=== PATIENT | male | born 1960 | race American Indian/Alaskan Native ===

== ENCOUNTER 2017-03-25 07:15 | Inpatient (IN) | payer MEDICAID ==
[2017-03-21 11:10] LABS: Basophils % (Auto) 0.3 % (0.0-1.8); Eosinophils % (Auto) 2.9 % (0.0-4.3); Hematocrit 39.1 % (35.5-45.6); Mean Corpuscular HGB Conc 33 % (32-34); Mean Corpuscular Hemoglobin 29 pg (28-32); Mean Corpuscular Volume 86 fl (84-94); Platelet Count 200 K/mm3 (140-440); Red Blood Count 4.52 M/mm3 (3.65-5.03); Red Cell Distribution Width 13.6 % (13.2-15.2); White Blood Count 11.6 K/mm3 (4.5-11.0)
--- NOTE | 2017-03-21 11:10 | Anesthesia Consultation ---
Anesthesia Consult and Med Hx Date of service: 03/25/17 - Airway Anesthetic Teeth Evaluation: Good, Caps (gold cap, bottom, front tooth) ROM Head & Neck: Adequate Mental/Hyoid Distance: Adequate Mallampati Class: Class II Intubation Access Assessment: Probably Good - Pulmonary Exam CTA: Yes - Cardiac Exam Cardiac Exam: RRR - Pre-Operative Health Status ASA Pre-Surgery Classification: ASA3 Proposed Anesthetic Plan: General - Pulmonary Hx Smoking: No Hx Asthma: No Hx Sleep Apnea: No (ELMER PRE SCREEN HIGH RISK) - Cardiovascular System Hx Hypertension: Yes (2008) - Central Nervous System Hx Seizures: No 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
[2017-03-21 11:21] LABS: INR 1.1 (0.87-1.13)
[2017-03-21 11:22] LABS: Partial Thromboplastin Time 33.1 Sec. (24.2-36.6)
[2017-03-21 11:35] LABS: Alanine Aminotransferase 16 units/L (7-56); Albumin 3.7 g/dL (3.9-5); Albumin/Globulin Ratio 1.1 %; Alkaline Phosphatase 72 units/L (35-129); Anion Gap 18 mmol/L; BUN/Creatinine Ratio 12.22; Blood Urea Nitrogen 11 mg/dL (9-20); Calcium 8.7 mg/dL (8.4-10.2); Carbon Dioxide 23 mmol/L (22-30); Glucose 116 mg/dL (75-100); Potassium 3.7 mmol/L (3.6-5.0); Sodium 139 mmol/L (137-145)
[~2017-03-25 07:15] MED LIST: NACL 0.9% 1000 ML 1,000 ML IV SCH; PEPCID PO NR
[2017-03-25] MEDS ORDERED: ceFAZolin 2 GM in NACL 0.9% 100 ML IV ONE (09:22)
[2017-03-25] MEDS ORDERED: DILAUDID ONE ×3 (09:35→14:17)
[2017-03-25] MEDS ORDERED: DIPRIVAN 10 MG/ML IV ONE (09:35)
[2017-03-25] MEDS ORDERED: XYLOCAINE MPF 2% ONE (09:36)
[2017-03-25] MEDS ORDERED: ANCEF/STERILE WATER 2 GM/20 ML 2 GM/20 ML SYRINGE IV NR ×2 (10:00)
--- NOTE | 2017-03-25 10:12 | Post Operative Note ---
Date of procedure: 03/25/17 Pre-op diagnosis: GRAHAM Post-op diagnosis: same Findings: large gland Procedure: cysto turp Anesthesia: GETA Surgeon: LYLE ATWOOD Estimated blood loss: 50-100ml Pathology: list (prostate) Specimen disposition: to lab Condition: stable Disposition: PACU
[2017-03-25] MEDS ORDERED: WATER FOR IRRIG STERILE IR ONE (10:13)
[2017-03-25] MEDS ORDERED: SORBITOL-MANNITOL IRRIG IR ONE ×2 (10:13)
[2017-03-25] MEDS ORDERED: NACL 0.9% IR ONE (10:14)
[2017-03-25] MEDS ORDERED: ZOFRAN ONE (10:39)
[2017-03-25] MEDS ORDERED: DECADRON ONE (10:39)
[2017-03-25] MEDS ORDERED: ePHEDrine SULFATE ONE (10:51)
[2017-03-25] MEDS ORDERED: TYLENOL PO PRN (11:11)
[2017-03-25] MEDS ORDERED: ZOFRAN IV PRN (11:11)
--- NOTE | 2017-03-25 11:15 | Post Anesthesia Evaluation ---
- Post Anesthesia Evaluation Patient Participated: Yes Airway Patent: Yes Stable Respiratory Function: Yes Nausea/Vomiting: No Temp > 96.8F: Yes Pain Manageable: Yes Adequeate Hydration: Yes Anesthesia Complications: No
[2017-03-25] MEDS ORDERED: AMBIEN PO PRN (11:16)
[2017-03-25] MEDS: DILAUDID IV PRN ×3 (11:47→14:25)
[2017-03-25] MEDS ORDERED: ANCEF/NS 1 GM/50 ML 1 GM/50 ML BAG IV SCH (12:00)
[2017-03-25] MEDS ORDERED: D5W/0.45% NACL/KCL 20 MEQ 20 MEQ/1,000 ML BAG IV SCH (12:00)
--- NOTE | 2017-03-25 12:04 | XRay Report ---
SUPINE KUB: The abdominal gas pattern is unremarkable. No masses or organomegaly is identified and there is no gross evidence of free air or fluid. No significant soft tissue calcifications are noted. IMPRESSION: Normal study.
[2017-03-25] MEDS: NACL 0.9% IR SCH ×6 (12:45→17:30)
[2017-03-25] MEDS ORDERED: NACL 0.9% IR SCH (13:00)
[2017-03-25] MEDS ORDERED: NACL 0.9% 1000 ML 1,000 ML ONE (13:11)
[2017-03-25] MEDS: ANCEF/NS 1 GM/50 ML 1 GM/50 ML BAG IV SCH ×2 (14:31→22:21)
--- NOTE | 2017-03-25 16:48 | Operative Report ---
PREOPERATIVE DIAGNOSES: Bladder outlet obstruction, large prostate with very large middle lobe. POSTOPERATIVE DIAGNOSES: Bladder outlet obstruction, large prostate with very large middle lobe. PROCEDURE: Cystoscopy, transurethral resection of prostate. SURGEON: Siddhartha Beckman MD ANESTHESIA: General. FINDINGS: This is a gentleman with a very large prostate with progressive bladder outlet obstruction holey compliant with his medication. He now presents for treatment of his condition. All risks and benefits discussed with him and his . DESCRIPTION OF PROCEDURE: The patient brought to the operating room and placed on the operating table. Following induction of anesthesia, placed in lithotomy position, prepped and draped in sterile fashion. His urethra was quite long, we barely got the resectoscope and under direct vision. We passed a 27-resectoscope in behind this large middle lobe. We resected the middle lobe that was the main aspect of this procedure. Once we resected it, there was some tissue that got in, so we resected the lateral lobes. Careful attention was made not to disturb the trigone. The orifices were intact. The patient tolerated the procedure well. There were no significant complication was resected first on the left lobe, which was communicated with the middle lobe. There were small bleeders from the 5 and 7 o'clock position, which were cauterized. There was also bleeders from anterior that would prop down. We were careful not to resect it due to sphincter mechanism. The patient tolerated the procedure well. All the chips were evacuated out with the Shicon evacuator. Hemostasis was good. We used the ball electrode. We connected 3-way catheter, which was draining clear urine. It was irrigated freely, we got about 40 mL in the balloon. The patient was brought to recovery in stable condition. JOB# [id number] JORDYN/MALCOM
[2017-03-25] MEDS: NORCO 5/325 PO PRN ×2 (17:05→22:57)
--- NOTE | 2017-03-25 18:58 | Admit Criteria Form ---
Admission Criteria Documentation: AMBULATORY SURGERY EXCEPTION CRITERIA Ambulatory Surgery Exception Criteria ( Place 'X' for any and all applicable criteria): Surgery or procedure performed on ambulatory basis may require inpatient stay for[A] ANY ONE of the following(1)(2)(3)(4)(5)(6)(7)(8)(9): [X] I. A preoperative situation, condition, or finding that warrants inpatient stay as indicated by ANY ONE of the following: [] a) Inpatient care needed because of severity of a disease or condition rather than the surgery (eg, severe cardiac or respiratory disease, severe infection) (15) (16 ) (17) (18) [] b) Emergent procedure (eg, angioplasty for acute ischemia)(19) [] c) Complex surgical approach or situation as indicated by ANY ONE of the following(3): [] i) Open approach needed instead of usual endoscopic, transcatheter, or other less invasive procedure [] ii) Difficult approach because of previous operation [] iii) Airway monitoring required after open neck procedures(20)(21) [] iv) Large mass requiring unusually extensive dissection [] v) Additional complicating feature requiring inpatient care (eg, drain management)(22(23): [X] d) Major surgery in a pt with high anesthetic risk as indicated by ANY ONE of the following (2)(3)(5)(7)(8): [X] i) ASA risk class III or higher (severe systemic disease impairing function) [D] [] ii) Advanced age (eg, older than 85 years)(14)(24) [] iii) Symptomatic heart failure(25) [] iv) Symptomatic asthma or COPD(8)(21) [] v) Morbid obesity with hemodynamic or respiratory problems(20)( 21)(26)(27) [] vi) Obstructive sleep apnea(20)(21) [] vii) Former premature infants who are younger than 60 weeks [] viii) High risk for severe postoperative abnormalities (eg, severe postoperative hypocalcemia after parathyroidectomy for severe hyperparathyroidism)(27)( 28) [] ix) Unstable angina(25) [] e) Drug-related risk requiring inpatient stay as indicated by ANY ONE of the following(5)(10)(14)(32)(33) [] i) Procedure requires discontinuing drugs or other therapy (eg , antiarrhythmic medication, antiseizure medication), which necessitates inpatient observation or treatment.(18)(31) [] ii) Major surgery and high risk drug use as indicated by ANY ONE of the following: [] 1) Active abuse of cocaine or similar drug [] 2) Monoamine oxidase inhibitor use [] 3) Other drug identified as posing risk [] f) Inadequate outpatient care situation as indicated by ANY ONE of the following(5)(10)(14)(32)(33) [] i) Patient lives remote from medical facility and procedure has urgent complication potential, and temporary nearby residence cannot be arranged [] ii) Patient will have postprocedure incapacitation and inadequate assistance at home, or alternative level of care cannot be arranged. [] iii) Patient will have long general anesthesia or procedure side effect resolution time, and competent person to stay with patient on first postoperative night at home or alternative level of care cannot be arranged. []iv) Other inadequate outpatient situation that cannot be handled by other means [X] II. A perioperative event, condition, or finding that warrants inpatient stay as indicated by ANY ONE of the following (1)(2)(3): [X] a) Inadequate physiologic recovery: cardiovascular, respiratory, or hemodynamic status not normal or near preoperative baseline(18) [] b) Hemodynamic instability [] c) Patient not alert with near normal or baseline mental status [] d) Temperature not normal or as expected and not appropriate for outpatient treatment of condition [] e) Ambulatory or appropriate activity level status not yet achieved post procedure [E](34)(35)(36) [] f) Operative site not appropriate (eg, unexpected or excessive drainage or bleeding) [] g) Postoperative effects not resolved or adequately managed (eg, significant pain or vomiting not appropriate for outpatient or next level of care)(10)(12) [] h) Complicating features requiring inpatient care as indicated by ANY ONE of the following(37): [] i) Severe complications of procedure (eg, bowel injury, airway compromise, vascular injury,severe hemorrhage) [] ii) Extensive (eg, dissection far beyond usual scope of procedure ) or prolonged (eg, 120 minutes beyond usual) surgery needed requiring inpatient postoperative care [] iii) Conversion to an open or complex procedure that requires inpatient care (eg, open vs laparoscopic cholecystectomy, abdominal vs vaginal hysterectomy)(38) [] iv) Comorbid condition or test result identified during or post procedure that requires inpatient care (7) [] v) Malignant hyperthermia(30) [] vi) Other complicating feature requiring inpatient care(22)(23) Inpatient stay may be needed until ALL of the following are present (1)(2)(3)(4) (5)(6)(10)(14)(33)(40): []a) Physiologic recovery: cardiovascular, respiratory, and hemodynamic status normal or near preoperative baseline []b) Hemodynamic stability []c) Patient alert, with near normal or baseline mental status []d) Temperature appropriate: patient afebrile or temperature appropriate for outpt treatment of condition []e) Activity level appropriate: ambulatory or appropriate activity level post procedure []f) Operative site appropriate as indicated by ALL of the following: []i) Site dry or with expected drainage []ii) Any blood noted is as expected for procedure. []g) Postoperative effects resolved or managed as indicated by ALL of the following: []i) Pain management appropriate for outpatient (or next level of) care(10) []ii) Minimal nausea and vomiting: if present, successfully treated with oral medication(12) []iii) Headache, dizziness, or drowsiness (if present) are mild. []h) Voiding status acceptable as indicated by ANY ONE of the following: []i) Voiding spontaneously []ii) No voiding but instructions given for follow-up in 6 to 8 hours []iii) Urinary catheter in place, and instructions given for follow-up []i) Complicating features requiring inpatient care manageable at a lower level of care(37) []j) Comorbid conditions manageable at a lower level of care(37) The original [employer] content created by [employer] has been revised. The portions of the content which have been revised are identified through the use of italic text or in bold, and [facility] has neither reviewed nor approved the modified material. All other unmodified content is copyright [employer]. Please see references footnoted in the original [employer] edition 2016 Admission Criteria Met: Yes
[2017-03-25] MEDS ORDERED: PEPCID IV SCH (22:00)
[2017-03-25] MEDS ORDERED: NACL 0.9% 1,000 ML IR ONE (23:26)
[2017-03-26] MEDS: NACL 0.9% IR SCH ×3 (01:58→06:30)
[2017-03-26] MEDS: ANCEF/NS 1 GM/50 ML 1 GM/50 ML BAG IV SCH (05:04)
[2017-03-26 05:58] LABS: Hematocrit 38.7 % (35.5-45.6); Hemoglobin 12.6 gm/dl (11.8-15.2); Mean Corpuscular HGB Conc 33 % (32-34); Mean Corpuscular Hemoglobin 29 pg (28-32); Mean Corpuscular Volume 88 fl (84-94); Platelet Count 222 K/mm3 (140-440); Red Cell Distribution Width 13.9 % (13.2-15.2)
[2017-03-26 06:00] LABS: White Blood Count 21.3 K/mm3 (4.5-11.0)
[2017-03-26 06:17] LABS: Anion Gap 16 mmol/L; BUN/Creatinine Ratio 23.33; Blood Urea Nitrogen 21 mg/dL (9-20); Calcium 8.1 mg/dL (8.4-10.2); Carbon Dioxide 20 mmol/L (22-30); Chloride 107.8 mmol/L (98-107); Glucose 155 mg/dL (75-100); Potassium 4.7 mmol/L (3.6-5.0); Sodium 139 mmol/L (137-145)
[2017-03-26 07:15] VITALS: BP 117/70
[2017-03-26 07:34] LABS: Basophils % (Manual) 0 % (0.0-1.8); Blastocytes % (Manual) 0 %; Eosinophils % (Manual) 0 % (0.0-4.3)
[2017-03-26 07:35] LABS: Anisocytosis 1+; Diff Status Complete; Hypochromasia Few
--- NOTE | 2017-03-26 11:51 | Progress Note ---
Assessment and Plan cath irrigated clear no clots home with ortiz x 5 d Subjective Date of service: 03/26/17 Principal diagnosis: GRAHAM Objective - Constitutional Vitals: Vital Signs - 12hr 03/26/17 03/26/17 03/26/17 00:00 04:00 10:00 Temperature 97.5 F L 97.4 F L Pulse Rate [ 62 63 From Monitor] Respiratory 20 20 Rate Blood Pressure 124/78 117/70 [Left Arm] O2 Sat by Pulse 99 98 98 Oximetry General appearance: Present: no acute distress - Neck Neck: supple - Respiratory Respiratory effort: normal Extremities: no ischemia - Gastrointestinal General gastrointestinal: Present: soft, non-tender - Labs CBC & Chem 7: 03/26/17 05:25 03/26/17 05:25 Labs: Abnormal lab results 03/25/17 03/25/17 03/26/17 Range/Units 17:32 22:02 05:25 WBC 21.3 H (4.5-11.0) K/mm3 Monocytes % (Manual) 10.0 H (0.0-7.3) % Seg Neutrophils # Man 14.1 H (1.8-7.7) K/mm3 Monocytes # (Manual) 2.1 H (0.0-0.8) K/mm3 Chloride (98-107) mmol/L Carbon Dioxide (22-30) mmol/L BUN (9-20) mg/dL Glucose (75-100) mg/dL POC Glucose 199 H 211 H (70-105) Calcium (8.4-10.2) mg/dL 03/26/17 Range/Units 05:25 WBC (4.5-11.0) K/mm3 Monocytes % (Manual) (0.0-7.3) % Seg Neutrophils # Man (1.8-7.7) K/mm3 Monocytes # (Manual) (0.0-0.8) K/mm3 Chloride 107.8 H (98-107) mmol/L Carbon Dioxide 20 L (22-30) mmol/L BUN 21 H (9-20) mg/dL Glucose 155 H (75-100) mg/dL POC Glucose (70-105) Calcium 8.1 L (8.4-10.2) mg/dL
--- NOTE | 2017-03-26 11:53 | Discharge Summary ---
Short Stay Discharge Plan Activity: other (no straining ) Weight Bearing Status: Full Weight Bearing Diet: low fat, low cholesterol, low salt Wound: other (ortiz care ) Special Instructions: other (inc fluids ) Durable Medical Equipment Needed Upon Discharge: other (ortiz ) Follow up with: PRIMARY CARE, [Primary Care Provider] - 7 Days LYLE ATWOOD MD [Staff Physician] - 7 Days
== END 2017-03-26 14:15 | disposition home or self-care (01) | DRG 667 ==
LOC: OR 07:15 → OBSVTOIN 11:12 → 3A 11:12 → 2B-SURG 18:45
PROVIDERS: ADMIT Urology; ATTEND Urology
PROC: 0VT08ZZ Resection of Prostate, Via Natural or Artificial Opening Endoscopic (ICD-10-PCS; principal; 2017-03-26)
DX: N32.0 Bladder-neck obstruction (principal); N40.1 Benign prostatic hyperplasia with lower urinary tract symptoms; I10 Essential (primary) hypertension; E11.9 Type 2 diabetes mellitus without complications; Z86.73 Personal history of transient ischemic attack (TIA), and cerebral infarction without residual deficits
CPT/HCPCS: 36415; 74000; 80048; 80053; 82962; 85007; 85025; 85610; 85730; 86850; 86900; 86901; 88305; A4217; J0690; J1100; J1170; J2405; J2704; J7030

== ENCOUNTER 2018-04-22 19:26 | Emergency (ER) | payer MEDICAID ==
[2018-04-22] MEDS ORDERED: ZOFRAN IV ONE (20:21)
[2018-04-22] MEDS ORDERED: SUBLIMAZE IV ONE ×2 (20:21→21:00)
--- NOTE | 2018-04-22 20:25 | Emergency Department Report ---
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 Patient brought to the ER for evaluation after a fall. Patient stated that he was working on his house roof when he slipped and fell so complaining of left lower chest and left upper abdomen chest and tenderness. Patient denied any loss of consciousness. He denied any other injuries. Patient also stated that for the last week he was having productive cough with greenish sputum but denied any fever, nausea or vomiting. MD Complaint: fall Fall From: from height (distance) When Fall Occurred: just prior to arrival Fall Witnessed: yes, by family Place Fall Occurred: home Loss of Consciousness: none Prolonged Down Time?: no Symptoms Prior to Fall: none Location: chest, abdomen Context: tripped/slipped - Related Data Home Medications Medication Instructions Recorded Confirmed Last Taken Aspirin EC [Aspirin Enteric Coated 81 mg PO QDAY 07/23/13 03/25/17 03/18/17 22: 00 TAB] 81MG Carvedilol [Coreg] 6.25 mg PO BID 07/23/13 03/25/17 03/25/17 06:00 6.25MG Lisinopril [Zestril TAB] 40 mg PO QDAY 07/23/13 03/25/17 03/25/17 06:00 40MG NIFEdipine XL [Procardia Xl] 60 mg PO BID 07/23/13 03/25/17 03/25/17 06:00 60MG Doxazosin [Cardura] 1 mg PO QDAY 03/12/17 03/25/17 03/23/17 22:30 1MG Ibuprofen [Motrin] 600 mg PO Q8H PRN 03/12/17 03/25/17 03/25/17 06:00 600 Previous Rx's Medication Instructions Recorded Last Taken Type Tamsulosin [Flomax] 0.4 mg PO QDAY #7 cap 09/04/15 03/23/17 22:30 Rx 0.4MG ALBUTEROL Inhaler [ProAir HFA 2 puff IH QID PRN #1 inhalation 04/23/18 Unknown Rx Inhaler] Amoxicillin/Potassium Clav 1 each PO BID #20 tablet 04/23/18 Unknown Rx [Augmentin 875-125 Tablet] Ondansetron [Zofran Odt] 4 mg PO Q8HR PRN #14 tab.rapdis 04/23/18 Unknown Rx traMADol [Ultram 50 MG tab] 50 mg PO Q4HR PRN #14 tablet 04/23/18 Unknown Rx Allergies Allergy/AdvReac Type Severity Reaction Status Date / Time No Known Allergies Allergy Verified 03/12/17 16:43 ED Review of Systems ROS: Stated complaint: FALL 10 FEET PLUS Other details as noted in HPI Comment: All other systems reviewed and negative Respiratory: denies: cough, shortness of breath Cardiovascular: chest pain. denies: palpitations, dyspnea on exertion, orthopnea Gastrointestinal: abdominal pain. denies: nausea, vomiting, diarrhea, constipation, hematemesis Neurological: denies: headache, weakness, numbness, paresthesias, confusion, abnormal gait, vertigo ED Past Medical Hx - Past Medical History Hx Hypertension: Yes (2008) Hx CVA: Yes Hx Congestive Heart Failure: No Hx Diabetes: No Hx Renal Disease: No Hx Seizures: No Hx Asthma: No Hx COPD: No Hx HIV: No - Surgical History Past Surgical History?: Yes Additional Surgical History: femur fx, turp - Social History Smoking Status: Never Smoker Substance Use Type: None - Medications Home Medications: Home Medications Medication Instructions Recorded Confirmed Last Taken Type Aspirin EC [Aspirin Enteric Coated 81 mg PO QDAY 07/23/13 03/25/17 03/18/17 22: 00 History TAB] 81MG Carvedilol [Coreg] 6.25 mg PO BID 07/23/13 03/25/17 03/25/17 06:00 History 6.25MG Lisinopril [Zestril TAB] 40 mg PO QDAY 07/23/13 03/25/17 03/25/17 06:00 History 40MG NIFEdipine XL [Procardia Xl] 60 mg PO BID 07/23/13 03/25/17 03/25/17 06:00 History 60MG Tamsulosin [Flomax] 0.4 mg PO QDAY #7 cap 09/04/15 03/25/17 03/23/17 22:30 Rx 0.4MG Doxazosin [Cardura] 1 mg PO QDAY 03/12/17 03/25/17 03/23/17 22:30 History 1MG Ibuprofen [Motrin] 600 mg PO Q8H PRN 03/12/17 03/25/17 03/25/17 06:00 History 600 ALBUTEROL Inhaler [ProAir HFA 2 puff IH QID PRN #1 inhalation 04/23/18 Unknown Rx Inhaler] Amoxicillin/Potassium Clav 1 each PO BID #20 tablet 04/23/18 Unknown Rx [Augmentin 875-125 Tablet] Ondansetron [Zofran Odt] 4 mg PO Q8HR PRN #14 tab.rapdis 04/23/18 Unknown Rx traMADol [Ultram 50 MG tab] 50 mg PO Q4HR PRN #14 tablet 04/23/18 Unknown Rx ED Physical Exam - General Limitations: No Limitations General appearance: alert, in no apparent distress - Head Head exam: Present: atraumatic, normocephalic, normal inspection - Eye Eye exam: Present: normal appearance - ENT ENT exam: Present: normal exam, normal orophraynx, mucous membranes moist - Neck Neck exam: Present: normal inspection, full ROM. Absent: tenderness, meningismus, lymphadenopathy, thyromegaly - Respiratory Respiratory exam: Present: normal lung sounds bilaterally, chest wall tenderness - Cardiovascular Cardiovascular Exam: Present: regular rate, normal rhythm, normal heart sounds - GI/Abdominal GI/Abdominal exam: Present: soft, tenderness, normal bowel sounds. Absent: distended, guarding (left anterior quadrant), rebound, rigid, diminished bowel sounds, organomegaly, mass, bruit, pulsatile mass, hernia - Extremities Exam Extremities exam: Present: normal inspection, full ROM, normal capillary refill. Absent: pedal edema - Back Exam Back exam: Present: normal inspection, full ROM. Absent: tenderness, CVA tenderness (R), CVA tenderness (L) - Neurological Exam Neurological exam: Present: alert, oriented X3, CN II-XII intact, normal gait, reflexes normal - Skin Skin exam: Present: warm, intact, normal color ED Course Vital Signs 04/22/18 04/22/18 04/22/18 16:00 19:27 19:36 Temperature 98.8 F 98.9 F Pulse Rate 78 78 Respiratory 20 16 Rate Blood Pressure 108/67 134/88 134/88 O2 Sat by Pulse 94 95 Oximetry 04/22/18 04/22/18 04/22/18 19:44 19:50 20:00 Temperature Pulse Rate Respiratory Rate Blood Pressure 108/67 137/80 137/80 O2 Sat by Pulse 90 97 96 Oximetry 04/22/18 04/22/18 04/22/18 20:10 20:20 20:31 Temperature Pulse Rate 68 Respiratory 17 Rate Blood Pressure 143/76 143/76 108/67 O2 Sat by Pulse 98 97 98 Oximetry 04/22/18 04/22/18 04/22/18 20:41 20:51 21:00 Temperature Pulse Rate 69 66 65 Respiratory 17 18 16 Rate Blood Pressure 143/76 143/76 139/92 O2 Sat by Pulse 98 96 97 Oximetry 04/22/18 04/22/18 04/22/18 21:15 21:16 21:31 Temperature Pulse Rate 77 Respiratory 17 13 16 Rate Blood Pressure 139/92 139/92 O2 Sat by Pulse 99 98 99 Oximetry 04/22/18 04/22/18 04/22/18 21:45 22:00 22:15 Temperature Pulse Rate 63 65 Respiratory 13 14 12 Rate Blood Pressure 139/92 138/97 138/97 O2 Sat by Pulse 99 99 100 Oximetry 04/22/18 22:31 Temperature Pulse Rate 66 Respiratory 17 Rate Blood Pressure 138/97 O2 Sat by Pulse 100 Oximetry ED Medical Decision Making - Lab Data Result diagrams: 04/22/18 21:36 04/22/18 21:36 - Radiology Data Radiology results: report reviewed Referring Physician: JUAN CARLOS HARDING Patient Name: SANTANA JEFFERY Date of : 1960 Sex: Male Report Date: 2018-04-22 Report Status: Finalized Findings [facility] [address] [place] [address] Cat Scan Report Signed Patient: SANTANA JEFFERY JR MR#: [id number] : 1960 Acct:[id number] Age/Sex: 57 / M ADM Date: 04/22/18 Loc: ED Attending Dr: Ordering Physician: JUAN CARLOS HARDING Date of Service: 04/22/18 Procedure(s): CT abdomen pelvis w con Accession Number(s): [id number] cc: JUAN CARLOS HARDING FINAL REPORT PROCEDURE: CT ABDOMEN PELVIS W CON TECHNIQUE: Computerized axial tomography of the abdomen and pelvis was performed after the IV injection of iodinated nonionic contrast. HISTORY: trauma to the abdomen COMPARISON: No prior studies are available for comparison. FINDINGS: Liver, spleen, pancreas and adrenal glands are within normal limits. Bilateral kidneys demonstrate uniform enhancement without hydronephrosis. Aorta is of normal caliber. There is no free fluid or free air. Gallbladder is partially distended. Small bowel loops are within normal limits. Moderate degree residual stool is noted. Appendix is normal. There is moderate degree prostatomegaly. A small fat containing uncomplicated umbilical hernia is noted measuring 2.7 centimeters. Vertebral height is normal. IMPRESSION: No acute intra-abdominal or pelvic visceral injury. Transcribed By: [facility] Dictated By: HEIDI JAIN Electronically Authenticated By: HEIDI JAIN Signed Date/Time: 04/22/18 2321 Referring Physician: JUAN CARLOS HARDING Patient Name: SANTANA JEFFERY Date of : 1960 Sex: Male Report Date: 2018-04-22 Report Status: Finalized Findings [facility] [address] [place] [address] Cat Scan Report Signed Patient: SANTANA JEFFERY JR MR#: [id number] : 1960 Acct:[id number] Age/Sex: 57 / M ADM Date: 04/22/18 Loc: ED Attending Dr: Ordering Physician: JUAN CARLOS HARDING Date of Service: 04/22/18 Procedure(s): CT chest w con Accession Number(s): [id number] cc: JUAN CARLOS HARDING FINAL REPORT PROCEDURE: CT CHEST W CON TECHNIQUE: Computerized axial tomography of the chest was performed during the IV injection of iodinated nonionic contrast. HISTORY: trauma to the chest COMPARISON: No prior studies are available for comparison. TECHNICAL QUALITY: Satisfactory. FINDINGS: Atelectatic changes are noted involving bilateral lower lobes posteriorly right more than left. There is mild degree of consolidative change involving the posterior right lower lobe. Pleural spaces are clear. Hilar structures are within normal limits. Aorta is of normal caliber without evidence of rupture. There is no evidence of mediastinal hematoma. Thyroid demonstrates normal size and density. There is no pericardial effusion. Artery appears mildly enlarged. Vertebral height is normal. Visualized upper abdominal structures are within normal limits. IMPRESSION: Atelectatic changes bilateral lower lobes. Mild degree consolidated appearance of the posterior nance right lower lobe may represent an area of pulmonary contusion. Otherwise no acute abnormality. Transcribed By: [facility] [place] Dictated By: HEIDI JAIN Electronically Authenticated By: HEIDI JAIN Signed Date/Time: 04/22/182315 DD/ 15 TD/TT: 04/22/182315 DD/ 20 TD/TT: 04/22/182320 Critical care attestation.: If time is entered above; I have spent that time in minutes in the direct care of this critically ill patient, excluding procedure time. ED Disposition Clinical Impression: Abdominal contusion, Contusion of chest, Fall, Acute bronchitis Disposition: - TO HOME OR SELFCARE Is pt being admited?: No Condition: Stable Instructions: Acute Bronchitis (ED), Pulmonary Contusion (ED), Contusion in Adults (ED) Prescriptions: ALBUTEROL Inhaler [ProAir HFA Inhaler] 2 puff IH QID PRN #1 inhalation PRN Reason: Shortness Of Breath Amoxicillin/Potassium Clav [Augmentin 875-125 Tablet] 1 each PO BID #20 tablet Ondansetron [Zofran Odt] 4 mg PO Q8HR PRN #14 tab.rapdis PRN Reason: Nausea And Vomiting traMADol [Ultram 50 MG tab] 50 mg PO Q4HR PRN #14 tablet PRN Reason: Pain Referrals: PRIMARY CARE,MD [Primary Care Provider] - 3-5 Days
[2018-04-22 22:07] LABS: Basophils % (Auto) 0.2 % (0.0-1.8); Eosinophils # (Auto) 0.1 K/mm3 (0.0-0.4); Eosinophils % (Auto) 1.5 % (0.0-4.3); Hematocrit 37.1 % (35.5-45.6); Hemoglobin 12.3 gm/dl (11.8-15.2); Lymphocytes # (Auto) 3.3 K/mm3 (1.2-5.4); Lymphocytes % (Auto) 32.2 % (13.4-35.0); Mean Corpuscular HGB Conc 33 % (32-34); Mean Corpuscular Hemoglobin 29 pg (28-32); Mean Corpuscular Volume 86 fl (84-94); Monocytes # (Auto) 0.7 K/mm3 (0.0-0.8); Platelet Count 197 K/mm3 (140-440); Red Blood Count 4.32 M/mm3 (3.65-5.03)
[2018-04-22 22:33] LABS: BUN/Creatinine Ratio 12; Blood Urea Nitrogen 13 mg/dL (9-20); Calcium 8.9 mg/dL (8.4-10.2); Hemolysis Index 12
--- NOTE | 2018-04-22 23:19 | Cat Scan Report ---
FINAL REPORT PROCEDURE: CT CHEST W CON TECHNIQUE: Computerized axial tomography of the chest was performed during the IV injection of iodinated nonionic contrast. HISTORY: trauma to the chest COMPARISON: No prior studies are available for comparison. TECHNICAL QUALITY: Satisfactory. FINDINGS: Atelectatic changes are noted involving bilateral lower lobes posteriorly right more than left. There is mild degree of consolidative change involving the posterior right lower lobe. Pleural spaces are clear. Hilar structures are within normal limits. Aorta is of normal caliber without evidence of rupture. There is no evidence of mediastinal hematoma. Thyroid demonstrates normal size and density. There is no pericardial effusion. Artery appears mildly enlarged. Vertebral height is normal. Visualized upper abdominal structures are within normal limits. IMPRESSION: Atelectatic changes bilateral lower lobes. Mild degree consolidated appearance of the posterior nance right lower lobe may represent an area of pulmonary contusion. Otherwise no acute abnormality.
--- NOTE | 2018-04-22 23:25 | Cat Scan Report ---
FINAL REPORT PROCEDURE: CT ABDOMEN PELVIS W CON TECHNIQUE: Computerized axial tomography of the abdomen and pelvis was performed after the IV injection of iodinated nonionic contrast. HISTORY: trauma to the abdomen COMPARISON: No prior studies are available for comparison. FINDINGS: Liver, spleen, pancreas and adrenal glands are within normal limits. Bilateral kidneys demonstrate uniform enhancement without hydronephrosis. Aorta is of normal caliber. There is no free fluid or free air. Gallbladder is partially distended. Small bowel loops are within normal limits. Moderate degree residual stool is noted. Appendix is normal. There is moderate degree prostatomegaly. A small fat containing uncomplicated umbilical hernia is noted measuring 2.7 centimeters. Vertebral height is normal. IMPRESSION: No acute intra-abdominal or pelvic visceral injury.
[2018-04-22 23:39] VITALS: BP 138/97
== END 2018-04-23 00:38 | disposition home or self-care (01) ==
LOC: ED 19:26
DX: S20.212A Contusion of left front wall of thorax, initial encounter (principal); S30.1XXA Contusion of abdominal wall, initial encounter; J20.9 Acute bronchitis, unspecified; I10 Essential (primary) hypertension; Z86.73 Personal history of transient ischemic attack (TIA), and cerebral infarction without residual deficits; Z79.82 Long term (current) use of aspirin; W17.89XA Other fall from one level to another, initial encounter; Y93.89 Activity, other specified; Y99.8 Other external cause status; Y92.098 Other place in other non-institutional residence as the place of occurrence of the external cause
CPT/HCPCS: 36415; 71260; 74177; 80048; 85025; 96374; 96375; 99284; J2405; J3010; Q9967

== ENCOUNTER 2019-06-10 11:41 | Emergency (ER) | payer MEDICAID, SELFPAY ==
--- NOTE | 2019-06-10 11:54 | Event Note ---
ED Screening Note ED Screening Note: c/o HERRING and ear pain pt has not taken his blood pressure medication since 06/08/19 denies any vision changes, numbness, or weakness This initial assessment/diagnostic orders/clinical plan/treatment(s) is/are subject to change based on patients health status, clinical progression and re- assessment by fellow clinical providers in the ED. Further treatment and workup at subsequent clinical providers discretion. Patient/guardian urged not to elope from the ED as their condition may be serious if not clinically assessed and managed.
[2019-06-10] MEDS ORDERED: ZESTRIL PO ONE (13:02)
--- NOTE | 2019-06-10 13:07 | Emergency Department Report ---
ED General Adult HPI - General Chief complaint: High BP Stated complaint: HBP Time Seen by Provider: 06/10/19 11:52 Source: patient Mode of arrival: Ambulatory Limitations: No Limitations - History of Present Illness Initial comments: Mr. Bass is a very pleasant 58-year-old male with history of hypertension who presents with elevated blood pressure and right ear discomfort. He states that his right ear is clogged. No trauma. No fever. He denies visual changes. Denies chest pain. Denies abdominal pain. He needs refill of his blood pressure medication. He does have a primary physician. However he does not know if he has refills of his medication at his local pharmacy.. -: Gradual, days(s) (3) Location: head Severity scale (0 -10): 4 Consistency: constant Improves with: none Worsens with: other (water in ear while showering) Associated Symptoms: denies other symptoms - Related Data Home Medications Medication Instructions Recorded Confirmed Last Taken Aspirin EC [Halfprin EC] 81 mg PO QDAY 07/23/13 03/25/17 03/18/17 22:00 81MG Carvedilol [Coreg] 6.25 mg PO BID 07/23/13 03/25/17 03/25/17 06:00 6.25MG Lisinopril [Zestril TAB] 40 mg PO QDAY 07/23/13 03/25/17 03/25/17 06:00 40MG NIFEdipine XL [Procardia Xl] 60 mg PO BID 07/23/13 03/25/17 03/25/17 06:00 60MG Doxazosin [Cardura] 1 mg PO QDAY 03/12/17 03/25/17 03/23/17 22:30 1MG Ibuprofen [Motrin] 600 mg PO Q8H PRN 03/12/17 03/25/17 03/25/17 06:00 600 Previous Rx's Medication Instructions Recorded Last Taken Type Tamsulosin [Flomax] 0.4 mg PO QDAY #7 cap 09/04/15 03/23/17 22:30 Rx 0.4MG ALBUTEROL Inhaler (OR & NICU) 2 puff IH QID PRN #1 inhalation 04/23/18 Unknown Rx [ProAir HFA Inhaler] Amoxicillin/Potassium Clav 1 each PO BID #20 tablet 04/23/18 Unknown Rx [Augmentin 875-125 Tablet] Ondansetron [Zofran Odt] 4 mg PO Q8HR PRN #14 tab.rapdis 04/23/18 Unknown Rx traMADol [Ultram 50 MG tab] 50 mg PO Q4HR PRN #14 tablet 04/23/18 Unknown Rx Lisinopril [Zestril TAB] 40 mg PO QDAY 30 Days #30 tablet 06/10/19 Unknown Rx Allergies Allergy/AdvReac Type Severity Reaction Status Date / Time No Known Allergies Allergy Verified 06/10/19 11:41 ED Review of Systems ROS: Stated complaint: HBP Other details as noted in HPI Comment: All other systems reviewed and negative Constitutional: denies: fever, malaise Respiratory: denies: cough, shortness of breath Cardiovascular: denies: chest pain Gastrointestinal: denies: abdominal pain, nausea, vomiting ED Past Medical Hx - Past Medical History Previous Medical History?: Yes Hx Hypertension: Yes (2008) Hx CVA: Yes Hx Congestive Heart Failure: No Hx Diabetes: No Hx Renal Disease: No Hx Seizures: No Hx Asthma: No Hx COPD: No Hx HIV: No - Surgical History Additional Surgical History: femur fx, turp - Social History Smoking Status: Never Smoker Substance Use Type: None - Medications Home Medications: Home Medications Medication Instructions Recorded Confirmed Last Taken Type Aspirin EC [Halfprin EC] 81 mg PO QDAY 07/23/13 03/25/17 03/18/17 22:00 History 81MG Carvedilol [Coreg] 6.25 mg PO BID 07/23/13 03/25/17 03/25/17 06:00 History 6.25MG Lisinopril [Zestril TAB] 40 mg PO QDAY 07/23/13 03/25/17 03/25/17 06:00 History 40MG NIFEdipine XL [Procardia Xl] 60 mg PO BID 07/23/13 03/25/17 03/25/17 06:00 History 60MG Tamsulosin [Flomax] 0.4 mg PO QDAY #7 cap 09/04/15 03/25/17 03/23/17 22:30 Rx 0.4MG Doxazosin [Cardura] 1 mg PO QDAY 03/12/17 03/25/17 03/23/17 22:30 History 1MG Ibuprofen [Motrin] 600 mg PO Q8H PRN 03/12/17 03/25/17 03/25/17 06:00 History 600 ALBUTEROL Inhaler (OR & NICU) 2 puff IH QID PRN #1 inhalation 04/23/18 Unknown Rx [ProAir HFA Inhaler] Amoxicillin/Potassium Clav 1 each PO BID #20 tablet 04/23/18 Unknown Rx [Augmentin 875-125 Tablet] Ondansetron [Zofran Odt] 4 mg PO Q8HR PRN #14 tab.rapdis 04/23/18 Unknown Rx traMADol [Ultram 50 MG tab] 50 mg PO Q4HR PRN #14 tablet 04/23/18 Unknown Rx Lisinopril [Zestril TAB] 40 mg PO QDAY 30 Days #30 tablet 06/10/19 Unknown Rx ED Physical Exam - General Limitations: No Limitations General appearance: alert, in no apparent distress - Head Head exam: Present: atraumatic, normocephalic - Eye Eye exam: Present: normal appearance - ENT ENT exam: Present: mucous membranes moist - Neck Neck exam: Present: normal inspection, full ROM - Respiratory Respiratory exam: Present: normal lung sounds bilaterally. Absent: respiratory distress, wheezes, rales, rhonchi - Cardiovascular Cardiovascular Exam: Present: regular rate, normal rhythm, normal heart sounds. Absent: systolic murmur, diastolic murmur, rubs, gallop - GI/Abdominal GI/Abdominal exam: Present: soft, normal bowel sounds. Absent: distended, tenderness, guarding, rebound - Rectal Rectal exam: Present: deferred - Extremities Exam Extremities exam: Present: normal inspection - Back Exam Back exam: Present: normal inspection - Neurological Exam Neurological exam: Present: alert, oriented X3 - Psychiatric Psychiatric exam: Present: normal affect, normal mood - Skin Skin exam: Present: warm, dry, intact, normal color. Absent: rash - Other Other exam information: Cerumen impaction right ear ED Course Vital Signs 06/10/19 11:53 Temperature 98.7 F Pulse Rate 82 Respiratory 18 Rate Blood Pressure 180/109 O2 Sat by Pulse 98 Oximetry ED Medical Decision Making - Medical Decision Making Mr. Bass presents with hypertensive urgency without current headache. He does have right ear discomfort with cerumen impaction. Recommended [id number] therapy. Normal physical exam. Mr. Bass appears well. Prescribed lisinopril. According to electronic medical record he has tolerated this medication past. Strongly encouraged follow-up with his PCP Critical care attestation.: If time is entered above; I have spent that time in minutes in the direct care of this critically ill patient, excluding procedure time. ED Disposition Clinical Impression: Hypertensive urgency, Impacted cerumen, right ear Disposition: - TO HOME OR SELFCARE Is pt being admited?: No Does the pt Need Aspirin: No Condition: Stable Instructions: Hypertension (ED), Cerumen Impaction (ED) Prescriptions: Lisinopril [Zestril TAB] 40 mg PO QDAY 30 Days #30 tablet
[2019-06-10 13:25] VITALS: BP 174/101
== END 2019-06-10 13:44 | disposition home or self-care (01) ==
LOC: ED 11:41
DX: I16.0 Hypertensive urgency (principal); I10 Essential (primary) hypertension; H61.21 Impacted cerumen, right ear; Z86.73 Personal history of transient ischemic attack (TIA), and cerebral infarction without residual deficits; Z79.82 Long term (current) use of aspirin; Z79.899 Other long term (current) drug therapy
CPT/HCPCS: 99282